=== PATIENT | female | born 1960 | race Hispanic/Latino ===

== ENCOUNTER 2024-04-28 16:17 | Emergency (ER) | payer BC, SELFPAY ==
[2024-04-28 16:22] VITALS: BP 115/82; PULSE 73; RESP 16; TEMP 35.7; O2SAT 99
[2024-04-28] MEDS: 0.9% Normal Saline (1000mL) 1,000 ML 1000 ML IV (17:34)
[2024-04-28 18:01] LABS: Absolute Neutrophil Count 11.6 X10^3/uL (2.0-7.7); Basophil# 0.05 X10^3/uL; Basophil% 0.4 % (0-1); Eosinophil# 0.06 X10^3/uL; Eosinophils% 0.4 % (0-5); Hematocrit 46.1 % (37-47); Hemoglobin 14.8 g/dL (12.0-15.0); Lymphocyte % 5.2 % (19-41); Mean Corp Hgb Conc 32.1 g/dL (32-36); Mean Corpuscular Hgb 29.6 pg (27.0-32.0); Mean Corpuscular Volume 92.2 fL (81-99); Mean Platelet Vol. 11.1 fl (6.2-12.0); Monocyte% 6.7 % (0-10); NRBC Flagged by Analyzer 0 % (0-5); Neutrophil # 11.59 X10^3/uL (2.7-7.7); Neutrophil % 86.7 % (47-70); POSITIVE COUNT YES; Platelet Count 160 K/mm3 (150-450); RBC Distribution Width CV 13.4 % (11.6-14.6); RBC Distribution Width SD 45.7 fl (35.1-43.9); White Blood Count 13.4 K/mm3 (4.4-11.0)
[2024-04-28 18:11] VITALS: BP 140/88; PULSE 69; RESP 14; O2SAT 100
[2024-04-28 18:11] LABS: Differential Indicated SCAN CRITERIA MET
[2024-04-28 18:28] LABS: Anion Gap 9 (5-15); BUN 18 mg/dL (7-18); BUN/Creat Ratio 17.8 RATIO (10-20); Calcium,Total 9.7 mg/dL (8.5-10.1); Chloride 110 mmol/L (98-107); Creatinine, Serum 1.01 mg/dL (0.55-1.02); EST Glomerular Filtration Rate 59 mL/min (>60); Est Glom Filt Rate - Afr Amer 71 mL/min (>60); Glucose 101 mg/dL (74-106); Potassium 4.1 mmol/L (3.5-5.1); Sodium Level 139 mmol/L (136-145)
[2024-04-28 18:29] LABS: Differential Comment SCANNED
--- NOTE | 2024-04-28 18:49 | CT_ITS ---
STUDY: CT ABDOMEN AND PELVIS WITH CONTRAST REASON FOR EXAM: Female, 64 years old. blood and mucus in stool, left lower quadrant abd pain RADIATION DOSAGE (If Supplied By Facility): CTDIvol = ( 19.13 ) mGy, DLP = ( 929.48 ) mGycm TECHNIQUE: Transaxial images were obtained from the dome of the diaphragm to the symphysis pubis without oral contrast. IV 75mL Isovue-370 was administered. Sagittal and coronal images were reconstructed. Individualized dose optimization techniques were used for this CT. COMPARISON: None. FINDINGS: The visualized lung bases are unremarkable. The visualized portions of the heart are within normal limits. Normal liver. Normal gallbladder and extrahepatic biliary system. Normal spleen. Normal pancreas. Normal bilateral adrenal glands. Normal right kidney. Normal left kidney. Normal visualized stomach. Normal small intestine. Fluid in the colon suggestive of diarrhea. The appendix is visualized and appears normal. Normal abdominal aorta. Normal inferior vena cava. Normal retroperitoneum. Normal urinary bladder. Normal abdominal wall. Normal osseous structures. CT/Abdomen/Pelvis W IV Cont ONLY IMPRESSION: Suspect diarrhea. Electronically Signed: Juanpablo Gould MD at 19:38 EDT ,
--- NOTE | 2024-04-28 19:32 | EDS_ITS ---
HPI History of Present Illness Chief Complaint: General Illness Detail of Chief Complaint: Abdominal pain with nausea, vomiting diarrhea Informant: patient and other (Use of computer aided drafter service total time 6 minutes 45 seconds) Limited: language barrier Onset/Context/Timing Onset: Today Context: Sudden Onset Timing: Intermittent Quality: Diffuse pain Current Severity: Gone Maximum Severity: Severe Worsened by: Prior to vomiting and diarrhea Relieved by: Not applicable Associated Symptoms Associated Symptoms: No other symptoms Narrative Narrative: Patient is a 64-year-old Belgian-speaking person who presents with generalized abdominal pain with nausea, vomit diarrhea. She denies hematemesis or hematochezia. She denies mucus in the diarrhea. She denies eating anything that tasted unusual. She has had no ill contacts. She is slightly fatigued. She endorses dry mouth and thirst. She denies orthostatic symptoms. She denies headache, visual, ocular auditory symptoms. She denies cardiac or respiratory symptoms. She denies urologic symptoms. Prior similar symptoms: No Recent Illness/Hospitalization: No PFSH PFSH Medical History no medical history Allergy/AdvReac Type Severity Reaction Status Date / Time No Known Allergies Allergy Verified 04/28/24 16:27 Social History Smoking Status: Never smoker ROS ROS ED Constitutional Constitutional ED: Denies chills, fever(s), subjective or sweats Eyes Eyes: Denies blurry vision or change in vision ENT ENT ED: Denies ear pain, rhinorrhea or sore throat Cardiovascular Cardiovascular: Denies chest pain or palpitations Respiratory/Chest Respiratory/Chest: Denies cough, dyspnea or dyspnea on exertion Gastrointestinal Gastrointestinal: Reports abdominal pain, diarrhea, nausea and vomiting; Denies constipation or melena Genitourinary Genitourinary ED: Denies dysuria, hematuria or urinary frequency Musculoskeletal Musculoskeletal: Denies arthralgias, back pain or myalgias Integumentary Denies rash Neurologic Neurologic: Reports weakness; Denies headache(s) or paresthesias Hematologic/Lymphatic Hematologic/Lymphatic: Reports systems reviewed and no addt'l complaints, except as documented EXAM Physical Exam Const Vital Signs: 04/28/24 16:22 04/28/24 17:15 04/28/24 18:11 Temperature 96.2 F L Temperature Source Temporal Pulse Rate 73 69 Respiratory Rate 16 14 Respiratory Effort Normal Non-Labored Respiratory Pattern Normal Blood Pressure 115/82 H 140/88 H Blood Pressure Mean 93 105 Pulse Ox 99 100 Oxygen Delivery Method Room Air Room Air Positive well nourished and well developed General Appearance ED: well developed and NAD; Negative for cyanotic or d iaphoretic HEENT Reports dry mucous membranes HEENT Narrative: Head is atraumatic, cephalic. Ears normal. Nares patent. Posterior pharynx is normal. Mouth ED: Yes dry mucous membranes Mouth: dry mucous membranes Eyes PERRL and EOMs intact bilaterally General Eye ED: Negative for pale conjunctiva or scleral icterus Neck no lymphadenopathy, supple and no JVD Chest Wall inspection of chest normal and palpation of chest normal Resp normal respiratory effort and clear to auscultation bilaterally Cardio regular rate, regular rhythm, S1 normal heart sound, S2 normal heart sound and no murmurs GI no masses; Negative for non-tender, non-distended or hepatosplenomegaly GI Narrative: Bowel sounds are diminished. Inspection: abdominal distention Palpation: tender LLQ; Negative for guarding Back/Spine no CVA tenderness Extremity normal to inspection Neuro oriented x3 and CN's II-XII intact bilaterally Sensorium / Orientation: alert Psych mental status grossly normal Skin no rashes or lesions noted, no wounds and skin turgor normal MDM MDM MDM Narrative Medical decision making narrative: Differential diagnosis is viral illness, diverticulitis, epiploic appendagitis, inflammatory or infectious colitis. Lab Data Attestation: I reviewed the patient's lab results. Lab results narrative: White count elevated 13.4 thousand with shift. Electrolyte panel was a CO2 of 20 with a normal anion gap. Labs: Laboratory Results - last 24 hr 04/28/24 17:40 WBC 13.4 H RBC 5.00 Hgb 14.8 Hct 46.1 MCV 92.2 MCH 29.6 MCHC 32.1 RDW Std Deviation 45.7 H RDW Coeff of Natasha 13.4 Plt Count 160 MPV 11.1 Immature Gran % (Auto) 0.600 Neut % (Auto) 86.7 H Lymph % (Auto) 5.2 L [place] % (Auto) 6.7 Eos % (Auto) 0.4 Baso % (Auto) 0.4 Absolute Neuts (auto) 11.6 H Absolute Lymphs (auto) 0.70 L Nucleated RBC % 0 Differential Comment SCANNED Sodium 139 Potassium 4.1 Chloride 110 H Carbon Dioxide 20.0 L Anion Gap 9 BUN 18 Creatinine 1.01 Est GFR (MDRD) Af Amer 71 Est GFR (MDRD) Non-Af 59 L BUN/Creatinine Ratio 17.8 Glucose 101 Calcium 9.7 Radiography Diagnostic Testing: Clinical Impression(s) from Imaging Studies Abdomen/Pelvis CT 04/28/24 18:49 IMPRESSION: Suspect diarrhea. Electronically Signed: Juanpablo Gould MD at 19:38 EDT , Interpretation of the CT by radiologist was reviewed as well as the body of the letter. Treatment and Re-Evaluation :: Since patient has left lower quadrant pain and elevated white count will obtain CT of the abdomen to evaluate for diverticulitis. Discharge Plan Triage Chief Complaint: General Illness Other Complaint: Nausea/Vomiting ED Provider: [facility] Dx/Rx/DC Orders Clinical Impression: Nausea vomiting and diarrhea, Abdominal pain, colicky, Leukocytosis Primary Care Provider: Care Physician,No Primary Referrals: Aleida Washington DO [Med Staff - Active Staff] - 3-5 Days if not improving Care Physician,No Primary [Primary Care Provider] - Print Language: Belgian Disposition Disposition: Home, Self Care
[2024-04-28 20:00] VITALS: BP 131/71; PULSE 90; RESP 16; O2SAT 100
== END 2024-04-28 20:13 | disposition home or self-care (01) ==
PROVIDERS: Emergency Provider Emergency Medicine; Visit Provider Emergency Medicine
DX: R11.2 Nausea with vomiting, unspecified (principal); R10.84 Generalized abdominal pain; R19.7 Diarrhea, unspecified; D72.829 Elevated white blood cell count, unspecified
CPT/HCPCS: 74177; 80048; 85025; 99284; Q9967